=== PATIENT | male | born 1985 | race Caucasian/White ===

== ENCOUNTER 2018-10-16 08:46 | Outpatient (REF) | payer BC, SELFPAY ==
[2018-10-16 21:28] LABS: Anion Gap 11.4 mmol/L (3-11); BUN 15 mg/dL (7-18); CO2 25.6 mmol/L (21.0-32.0); CREATININE 1.04 mg/dL (0.70-1.30); Calcium 9.3 mg/dL (8.5-10.1); Chloride 103 mmol/L (98-107); Cholesterol 219 mg/dL (50-200); Glucose 93 mg/dL (70-100); LDL CHOLESTEROL 157 mg/dL (<100); Potassium 4.1 mmol/L (3.5-5.1); Sodium 140 mmol/L (136-145); Triglyceride 195 mg/dL (30-150)
[2018-10-16 22:37] LABS: HDL Cholesterol 39 mg/dL (40-60)
== END 2018-10-16 09:06 ==
LOC: NCHCN 08:46
PROVIDERS: PCP Specialist/Technologist Athletic Trainer; Visit Provider Specialist/Technologist Athletic Trainer
DX: Z00.00 Encounter for general adult medical examination without abnormal findings (principal); Z13.228 Encounter for screening for other metabolic disorders; Z13.220 Encounter for screening for lipoid disorders
CPT/HCPCS: 80048; 80061; 83721

== ENCOUNTER 2025-01-25 21:21 | Outpatient (REF) | payer BC, SELFPAY ==
[2025-01-25 19:56] LABS: ALT 71 U/L (16-63); AST 26 U/L (15-37); Albumin 4.1 g/dL (3.4-5.0); Alkaline Phosphatase 71 U/L (46-116); Anion Gap 9.3 mmol/L (3-11); BUN 14 mg/dL (7-18); Bilirubin, Total 0.4 mg/dL (0.2-1.0); CO2 27.7 mmol/L (21.0-32.0); Calcium 9.6 mg/dL (8.5-10.1); Chloride 106 mmol/L (98-107); Estimated GFR 98.18 (mL/min/1.73m2); Glucose 121 mg/dL (74-106); Sodium 143 mmol/L (136-145); Total Protein 7.4 g/dL (6.4-8.2); Uric Acid 7.2 mg/dL (3.5-7.2)
[2025-01-25 20:07] LABS: Calculated LDL 153 mg/dL (<100); Cholesterol 228 mg/dL (<200); HDL Cholesterol 42 mg/dL (>or=40); Triglyceride 165 mg/dL (<150)
[2025-01-25 20:34] LABS: Hemoglobin A1C 5.2 % (<5.7)
== END 2025-01-25 21:22 | disposition home or self-care (01) ==
LOC: NCHCN 21:21
PROVIDERS: PCP Nurse Practitioner Family; Visit Provider Nurse Practitioner Family
DX: M79.674 Pain in right toe(s) (principal); Z00.00 Encounter for general adult medical examination without abnormal findings
CPT/HCPCS: 80053; 80061; 83036; 84550

== ENCOUNTER 2025-06-14 11:53 | Outpatient (REF) | payer BC, SELFPAY ==
[2025-06-14 15:36] LABS: Uric Acid 6.1 mg/dL (3.5-7.2)
== END 2025-06-14 11:54 | disposition home or self-care (01) ==
LOC: NCHCN 11:53
PROVIDERS: PCP Nurse Practitioner Family; Visit Provider Nurse Practitioner Family
DX: E79.0 Hyperuricemia without signs of inflammatory arthritis and tophaceous disease (principal)
CPT/HCPCS: 84550

== ENCOUNTER 2025-09-19 16:48 | Outpatient (REF) | payer BC, SELFPAY ==
[2025-09-19 19:45] LABS: Uric Acid 4.8 mg/dL (3.5-7.2)
== END 2025-09-19 16:49 | disposition home or self-care (01) ==
LOC: NCHCN 16:48
PROVIDERS: PCP Nurse Practitioner Family; Visit Provider Nurse Practitioner Family
DX: E79.0 Hyperuricemia without signs of inflammatory arthritis and tophaceous disease (principal)
CPT/HCPCS: 84550